=== PATIENT | male | born 1965 | race Caucasian/White ===

== ENCOUNTER → 2020-05-29 | Outpatient (CLI) | payer BC ==
[~2020-05-29] MED LIST: BP MED; CYCL10TA9 PO; KCL20TCR PO; LOSA1TAB23 PO; NAPR-243 PO; TRAM-21 PO
--- NOTE | 2020-05-29 12:32 | Diagnostic Imaging Report ---
PROCEDURE: US Hepatic (Liver). TECHNIQUE: Multiple real-time grayscale images were obtained over the right upper quadrant in various projections. INDICATION: Elevated liver enzymes. Liver is enlarged at 18.9 cm. There is diffuse increased echogenicity throughout the liver consistent with hepatic steatosis. There is a cyst in the liver measuring approximately 12 mm. Portal vein is patent and shows normal direction of flow. Gallbladder is without stones or sludge. No wall thickening or biliary ductal dilatation is seen. Pancreas is unremarkable. Aorta is nonaneurysmal. IVC is patent. Right kidney is without calculi or hydronephrosis. There is no ascites. IMPRESSION: 1. Hepatomegaly and hepatic steatosis. There is a small liver cyst. 2. No evidence of cholelithiasis or acute cholecystitis. Dictated by: Dictated on workstation # [id number]
== END ==
LOC: RAD 09:45
PROVIDERS: ATTEND Family Medicine
DX: K76.0 Fatty (change of) liver, not elsewhere classified (principal); R94.5 Abnormal results of liver function studies; F10.10 Alcohol abuse, uncomplicated
CPT/HCPCS: 76705

== ENCOUNTER 2022-11-09 10:54 | Outpatient (CLI) | payer BC ==
[~2022-11-09] VITALS: Ht 175.3 cm; Wt 72.4 kg
[2022-11-09] MEDS ORDERED: IRBE1TAB43 PO (12:47)
[2022-11-09] MEDS ORDERED: MTP25TSR PO (12:47)
[2022-11-10] MEDS ORDERED: HYDR-3817 PO (12:25)
== END 2022-11-09 13:16 | disposition home or self-care (01) ==
LOC: PREOP 10:54
PROVIDERS: ATTEND Surgery
DX: Z01.818 Encounter for other preprocedural examination (principal)

== ENCOUNTER 2022-11-10 11:27 | Day surgery (SDC) | payer BC ==
[2022-11-10] VITALS (11 sets, daily range): BP systolic 124–179; BP diastolic 87–115
[~2022-11-10 11:27] MED LIST changes: +IRBE1TAB43 PO; +MTP25TSR PO
--- NOTE | 2022-11-10 12:23 | Progress Note-Pre Operative ---
Pre-Operative Progress Note Date of Available H&P: Nov 10, 2022 Date H&P Reviewed: Nov 10, 2022 Time H&P Reviewed: 12:00 History & Physical: No changes noted Pre-Operative Diagnosis: reducible left inguinal hernia IVONNE AGUILAR MD Nov 10, 2022 12:23
[2022-11-10] MEDS ORDERED: HYDR-3817 PO (12:25)
--- NOTE | 2022-11-10 12:26 | Discharge Inst-Surgical ---
D/C Lap Instructions-LAUREN New, Converted, or Re-Newed RX: RX on Chart Follow Up Appt in 2 weeks Activity as tolerated No driving for 24 hours No driving while on pain medications Incentive Spirometry use every 2 hours while awake Regular Diet Symptoms to Report: Fever over 101 degree F, Nausea/Vomiting Infection Signs and Symptoms to report: Increased redness, Foul odor of wound, Increased drainage Bathing instructions: May shower Operative Area Clean/Dry; Keep incision clean/dry If any problems/questions: Contact your physician or go to Emergency Room IVONNE AGUILAR MD Nov 10, 2022 12:25
[2022-11-10] MEDS ORDERED: ACETAMINOPHEN 325 MG TABLET PO PRN (12:30)
[2022-11-10] MEDS ORDERED: ONDANSETRON 4 MG/2 ML (SDV) Z0FRAN IVP PRN ×2 (12:30→15:00)
[2022-11-10] MEDS ORDERED: morphine INJ 10 MG/ML 1ML (SYR OR VIAL) IVP PRN ×2 (12:30)
[2022-11-10] MEDS ORDERED: LACTATED RINGERS 1,000 ML IV PRN (12:30)
[2022-11-10] MEDS ORDERED: ceFAZolin INJECTION 2,000 MG in NS (IVPB) 50 ML IV ONE (12:30)
[2022-11-10] MEDS ORDERED: oxyCODONE/APAP 5/325MG (PERCOCET 5) TABLET PO PRN (12:30)
[2022-11-10] MEDS ORDERED: NS (IVPB) 50 ML ONE (12:38)
[2022-11-10] MEDS ORDERED: ceFAZolin INJECTION 2,000 MG ONE (12:38)
[2022-11-10] MEDS ORDERED: BUP/EPI 0.25% 1:200,000 (MARCAINE) 30 ML VIAL ONE (12:40)
[2022-11-10] MEDS ORDERED: MIDAZOLAM 2 MG/2 ML (VERSED) VIAL ONE ×2 (12:54→13:05)
[2022-11-10] MEDS ORDERED: BUP/EPI 0.25% 1:200,000 (MARCAINE) 30 ML VIAL INJ ONE (12:54)
[2022-11-10] MEDS ORDERED: MIDAZOLAM 2 MG/2 ML (VERSED) VIAL IVP ONE (13:00)
[2022-11-10] MEDS ORDERED: SEVOFLURANE (ULTANE) 15 ML INHAL SOLN ONE ×2 (13:05→14:34)
[2022-11-10] MEDS ORDERED: LIDOCAINE PF 2% 5 ML (XYLOCAINE) VIAL ONE (13:05)
[2022-11-10] MEDS ORDERED: ONDANSETRON 4 MG/2 ML (SDV) Z0FRAN ONE (13:05)
[2022-11-10] MEDS ORDERED: fentaNYL INJ 100 MCG/2 ML AMP ONE (13:05)
[2022-11-10] MEDS ORDERED: proPOfol 200 MG/20 ML (DIPRIVAN) VIAL IV ONE (13:05)
[2022-11-10] MEDS ORDERED: GLYCOPYRROLATE 0.2 MG/ML (ROBINUL) 2 ML VIAL ONE (14:27)
[2022-11-10] MEDS ORDERED: NEOSTIGMINE (BLOXIVERZ ) 1 MG/1ML 10 ML VIAL ONE (14:27)
--- NOTE | 2022-11-10 14:30 | Progress Note-Post Operative ---
Post-Operative Progess Note Surgeon (s)/Non Destructive Testing Inspector (s) Surgeon IOVNNE AGUILAR MD Non Destructive Testing Inspector: marek pinzon RABBIT FANCIER Pre-Operative Diagnosis reducible left inguinal hernia Post-Operative Diagnosis reducible left indirect inguinal hernia Procedure & Operative Findings Date of Procedure 11/10/22 Procedure Performed/Findings laparoscopic left inguinal hernia with mesh. Anesthesia Type get Estimated Blood Loss Estimated blood loss (mL): minimal Specimens/Packing Specimens Removed none IVONNE AGUILAR MD Nov 10, 2022 14:30
[2022-11-10] MEDS ORDERED: LABETALOL HCL 20 MG/4 ML VIAL IV PRN (15:00)
[2022-11-10] MEDS ORDERED: HYDROmorphone 2 MG/ML VIAL (DILAUDID) IV ONE (15:00)
[2022-11-10] MEDS ORDERED: morphine INJ 10 MG/ML 1ML (SYR OR VIAL) IVP ONE (15:00)
[2022-11-10] MEDS ORDERED: morphine INJ 10 MG/ML 1ML (SYR OR VIAL) ONE (15:02)
--- NOTE | 2022-11-10 15:04 | Anesthesia-General Post-Op ---
General Patient Condition Mental Status/LOC: Same as Preop Cardiovascular: Satisfactory Nausea/Vomiting: Absent Respiratory: Satisfactory Pain: Controlled Complications: Absent Post Op Complications Complications None Follow Up Care/Instructions Patient Instructions None needed. Anesthesia/Patient Condition Patient Condition Patient is awake in PACU and doing well with no complaints, stable vital signs, no apparent adverse anesthesia problems. No complications reported per nursing. JYOTI ALLAN DO Nov 10, 2022 15:04
--- NOTE | 2022-11-10 22:58 | OPERATIVE REPORT ---
DATE OF SERVICE: 11/10/2022 ATTENDING PRIMARY CARE PHYSICIAN: PREOPERATIVE DIAGNOSIS: Symptomatic reducible right inguinal hernia. POSTOPERATIVE DIAGNOSIS: Symptomatic reducible right indirect inguinal hernia. PROCEDURE: Laparoscopic right inguinal hernia repair with mesh. SURGEON: Ivonne Aguilar MD CPC: Goyo Barron APRN ANESTHESIA: General endotracheal. ESTIMATED BLOOD LOSS: Minimal. FINDINGS: Symptomatic reducible right indirect inguinal hernia. DISPOSITION: The patient tolerated the procedure well. The patient is a 57-year-old male referred over to us for symptomatic right inguinal hernia. He first noticed it 6 months ago and this has grown larger over time and has become painful. He reports that the lesion has grown larger in size over time as well. Upon examination in the office, he did have a reducible right inguinal hernia, which was tender to palpation. There was no left inguinal hernia component. He states that he is otherwise eating well and having normal bowel movements. DESCRIPTION OF PROCEDURE: The patient was brought to the operating room, laid supine on the table. After adequate IV pain and sedative medications and general endotracheal intubation, the abdomen was prepped and draped in standard surgical fashion. An area in the infraumbilical area was then anesthetized using 1% lidocaine. A sharp towel clamp was used to retract the abdominal wall anteriorly and a Veress needle inserted with a low opening pressure of 0 mmHg and the abdomen was then insufflated to 15 mmHg pressure. The Veress needle removed and a 10 mm trocar placed followed by a 10 mm 45-degree angle laparoscope visualized the peritoneal cavity. A 4-quadrant abdominal exploration was performed. A right indirect inguinal hernia was identified with nothing within the hernia sac. There was no left inguinal hernia component. Under direct visualization, we then proceeded to place bilateral 5 mm port after the skin and peritoneal lining were anesthetized using 0.5% Marcaine with epinephrine and transverse skin incision was made using a #15 blade. The patient was then placed in Trendelenburg position. The peritoneal lining was then opened laterally towards the conjoined tendon and inguinal ligament using a Sonicision. We then proceeded medially until Brian's ligament was identified. We then proceeded with an inferior dissection including the hernia sac using blunt dissection as well as the Sonicision. The cord and its surrounding contents identified and spared throughout the process. Good hemostasis was also observed. A 3DMax polypropylene mesh was then placed into the defect and tacked to Brian's ligament medially with absorbable tacks and to the inguinal ligament laterally. The peritoneal lining was then placed over the mesh and a few tacks placed to hold this in place with visualization of good hemostasis. The 10 mm port site fascia and peritoneum were then closed under direct visualization using a Buster-Yoel device and 0 Vicryl suture. The abdomen was desufflated and the remaining ports were removed. All skin incisions were closed using 4-0 Monocryl running subcuticular sutures. Wounds were then cleaned and covered with Dermabond. The patient tolerated the procedure well. We will start IV normal pain medication as well as a clear liquid diet. Once he is tolerating clears with good pain control with oral pain medications, ambulating well, we will discharge her home where he will be instructed to do no heavy lifting or exertion for the next 2 weeks and to wear the scrotal support for the same timeframe. CC: Dr. Waqas Mederos - requested, unable to deliver. Job ID: [id number] DocumentID: [id number] Dictated Date: 11/10/2022 14:39:37 Mincemeat Maker Date: 11/10/2022 22:56:00 Dictated By: IVONNE AGUILAR MD
== END 2022-11-10 16:35 | disposition home or self-care (01) ==
LOC: SDC 11:27
PROVIDERS: ATTEND Surgery
DX: K40.90 Unilateral inguinal hernia, without obstruction or gangrene, not specified as recurrent (principal); Z87.891 Personal history of nicotine dependence
CPT/HCPCS: 49650; 87081; C1781